=== PATIENT | female | born 2000 | race Caucasian/White ===

== ENCOUNTER 2023-04-23 13:55 | Outpatient (CLI) | payer SELFPAY ==
--- NOTE | 2023-04-23 14:00 | CRLHL7_ITS ---
For Patients: As a result of the Cures Act, medical imaging exams and procedure reports are released immediately into your electronic medical record. You may view this report before your referring provider. If you have questions, please contact your health care provider. INDICATION: Evaluate for size and dates TECHNIQUE: Ultrasound OB pelvis transvaginal. Real time hunter scale imaging of the pelvis was performed. COMPARISON: None FINDINGS: Sonographic imaging demonstrates a single living intrauterine gestation. The embryo demonstrates a regular cardiac rate measuring 165 beats per minute. The embryo`s crown rump length measurement 0.7 cm corresponds to a gestational age of 8 weeks 1 day with a sonographic due date of 12/02/2023. There is a normal appearing yolk sac. There are no gross abnormalities noted within the embryo at this early state of development. The placenta has not yet developed. The gestational sac has a normal appearance and there is no evidence of a perigestational hemorrhage. The amount of fluid within the sac appears appropriate for gestational age. The cervix is closed. The myometrium appears normal. The ovaries are of normal size. There are no suspicious fluid collections noted in the cul-de-sac. IMPRESSION: Viable intrauterine . Gestational age calculated at 8 weeks 1 day with a sonographic due date of 12/02/2023. This compares the gestational age by LMP 9 weeks 2 days. No abnormalities seen. Dictated by Antonio Kruger MD @ 04/23/2023 5:50:16 PM (Electronically Signed)
== END 2023-04-23 13:56 | disposition home or self-care (01) ==
PROVIDERS: Visit Provider Advanced Practice Midwife
DX: Z34.91 Encounter for supervision of normal pregnancy, unspecified, first trimester (principal); Z3A.09 9 weeks gestation of pregnancy
CPT/HCPCS: 76817; 80306; 86703; 86803; 86850; 86900; 86901; 87086; 87340

== ENCOUNTER 2023-04-23 14:28 | Outpatient (CLI) | payer SELFPAY | END 2023-04-23 14:29 | disposition home or self-care (01) | PROVIDERS: Visit Provider Advanced Practice Midwife | DX: Z34.91 Encounter for supervision of normal pregnancy, unspecified, first trimester (principal) | CPT/HCPCS: 80306; 86592; 86703; 86762; 86787; 86803; 86850; 86900; 86901; 87086; 87340 ==

== ENCOUNTER 2023-07-22 07:11 | Outpatient (CLI) | payer SELFPAY ==
--- NOTE | 2023-07-22 07:15 | CRLHL7_ITS ---
For Patients: As a result of the Century Cures Act, medical imaging exams and procedure reports are released immediately into your electronic medical record. You may view this report before your referring provider. If you have questions, please contact your health care provider. INDICATION: Evaluate anatomy. COMPARISON: none TECHNIQUE: Real time hunter scale imaging of the fetus was performed as well as color Doppler analysis of the umbilical vessels. FINDINGS: Sonographic imaging demonstrates a single living intrauterine gestation. Fetus demonstrates a regular cardiac rate of 152 beats per minute. Fetus has a variable position. The placenta lies anteriorly without evidence of placenta previa. The placental edge is located 4.8 cm from the internal cervical os. Amniotic fluid volume appears normal. Single deepest vertical pocket: 5.2 cm. The cervix is closed and measures 3.1 cm in length. The composite ultrasound gestational age is calculated at 21 weeks 3 days with an estimated sonographic due date of 11/29/2023. The estimated weight is 412 grams which lies at the 60th %. The following biometric measurements were obtained: Biparietal diameter: 5.2 cm/21 weeks 5 days 76th% Head circumference: 18.8 cm/21 weeks 1 day 44th% Abdominal circumference: 16.6 cm/21 weeks 5 days 65th% Femur length: 3.4 cm/20 weeks 6 days 34th% The HC/AC ratio measures: 1.13 range (1.06-1.24) On anatomic survey, there is a normal appearance of the cerebral ventricles, cavum septi pellucidi, cisterna magna and cerebellum. The nose, and lips appear normal. Incomplete visualization of the profile due to position. The cervical, thoracic and lumbar spine are well visualized and appear normal. There is a normal four-chamber heart view and the left and right ventricular outflow tracts appear normal. The diaphragm and stomach appear normal. The kidneys and bladder also appear normal. There is a normal three-vessel cord and cord insertion site. The four extremities appear normal. IMPRESSION: Concordance of clinical and sonographic dating. Incomplete visualization of profile due to position. Remainder of the anatomic survey is normal. Short-term follow-up recommended. Dictated by Antonio Colby MD @ 07/24/2023 6:13:17 AM (Electronically Signed)
== END 2023-07-22 07:12 | disposition home or self-care (01) ==
PROVIDERS: Visit Provider Advanced Practice Midwife
DX: Z34.92 Encounter for supervision of normal pregnancy, unspecified, second trimester (principal); Z3A.21 21 weeks gestation of pregnancy
CPT/HCPCS: 76805

== ENCOUNTER 2023-08-21 08:11 | Outpatient (CLI) | payer BC, SELFPAY ==
--- NOTE | 2023-08-21 08:15 | CRLHL7_ITS ---
For Patients: As a result of the Century Cures Act, medical imaging exams and procedure reports are released immediately into your electronic medical record. You may view this report before your referring provider. If you have questions, please contact your health care provider. INDICATION: FOLLOW UP MISSED ANATOMY COMPARISON: 07/22/2023 TECHNIQUE: Real time hunter scale imaging of the fetus was performed. FINDINGS: Sonographic imaging demonstrates a single living intrauterine gestation. Fetus demonstrates a regular cardiac rate of 142 beats per minute. Fetus has a vertex position. The placenta lies anteriorly. Amniotic fluid volume appears normal. Single deepest vertical pocket: 5.2 cm. Normal profile. IMPRESSION: Normal profile. Dictated by Antonio Colby MD @ 08/21/2023 11:55:01 AM (Electronically Signed)
== END 2023-08-21 08:12 | disposition home or self-care (01) ==
LOC: US 08:11
PROVIDERS: Visit Provider Advanced Practice Midwife
DX: Z36.2 Encounter for other antenatal screening follow-up (principal)
CPT/HCPCS: 76816

== ENCOUNTER 2023-09-18 09:10 | Outpatient (CLI) | payer BC, SELFPAY | END 2023-09-18 09:11 | disposition home or self-care (01) | LOC: NFLDREF 09-20 10:22 | PROVIDERS: Visit Provider Advanced Practice Midwife | DX: Z34.91 Encounter for supervision of normal pregnancy, unspecified, first trimester (principal) | CPT/HCPCS: 86592 ==

== ENCOUNTER 2023-11-06 10:31 | Outpatient (CLI) | payer BC, OTHER, SELFPAY ==
[2023-11-07 14:09] LABS: Strep B DNA Probe Negative (Negative)
[2023-11-07 14:20] LABS: Strep B Susceptibility Needed? No
== END 2023-11-06 10:32 | disposition home or self-care (01) ==
LOC: NFLDREF 10:31
PROVIDERS: Visit Provider Advanced Practice Midwife
DX: Z34.93 Encounter for supervision of normal pregnancy, unspecified, third trimester (principal); Z3A.36 36 weeks gestation of pregnancy
CPT/HCPCS: 87081; 87653

== ENCOUNTER 2023-11-18 22:27 | Inpatient (IN) | payer BC, SELFPAY ==
[2023-11-18 22:07] LABS: Amnisure Rom* POSITIVE
[2023-11-18 22:49] VITALS: BP 135/71; PULSE 73
[2023-11-18 22:50] VITALS: PULSE 76; O2SAT 98
[2023-11-18 23:22] VITALS: BMI 27.7
[2023-11-18 23:55] VITALS: TEMP 36.7
[2023-11-19] VITALS (25 sets, daily range): BP systolic 112–144; BP diastolic 58–81; PULSE 60–92; RESP 16–18; TEMP 36.5–37.7; O2SAT 97
--- NOTE | 2023-11-19 00:39 | W.PM.LDBA ---
Subjective History of Present Illness Date Seen: 11/19/23 Narrative: Patient is being admitted to Labor and Delivery for SROM. She is a 23 year old at 38.1 weeks gestation. Her full history and physical was dictated by Elliott Hernandez CNM on 11/12/23. Please see this for details. She had SROM with clear fluid at 1645. She has had contractions since shortly after this that had slowly increased in intensity and are about every 5 minutes. She labored at home for a while before coming in to be evaluated. On admit she was found to be 1cm/80%/+1 per RN exam. She continues to leak clear fluid. We had a discussion about augmentation of labor. She would like to avoid that is possible but is open to discussing it around t12 hours after rupture if labor isn't progressing on its own. She is supported by her and is coping well with contractions. She is planning to do the labor warm up circuit and is considering pumping as well to help stimulate labor. Denies questions. 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 Varicella NON immune, needs vaccine PP Needs PP pap Covid: declines Flu: declines Tdap: RSV: Declines OB - Problem Based A/P Additional Plan (1) Pain during labor: Status: Acute (2) SROM (spontaneous rupture of membranes): Status: Acute Plan ASSESSMENT:? at 38.1 weeks gestation? GBS negative? Uncomplicated ? ?? PLAN:? 1. Desires water . Consent signed. Hep C negative.?Waterbirth room is currently occupied. She is aware that she can labor in the tub. Will attempt to move her to the water room if timing allows. 2. Candidate for analgesia of choice. Planning unmedicated .? 3. Anticipate ? 4. Expectant management at this time.? 5. Intermittent auscultation after reactive tracing.? Delivery/Labor/Induction Plan Plan: expectant management OB Result Labs Blood Type: O (+) positive GBS Status: negative OB Exam Physical Exam Vital signs: Pulse BP Pulse Ox 73 135/71 98 11/18/23 22:49 11/18/23 22:49 11/18/23 22:50 Narrative: Psychiatric:? Alert and oriented x3? HEENT:? Normocephalic, atraumatic? Neck:? Supple without adenopathy or thyromegaly? Lungs:? Clear to auscultation bilaterally? Heart:? Regular rate and rhythm, no murmur, rub or gallop? Abdomen:? Soft, nontender, and gravid? Extremities:? No edema or erythema? Detailed Labor and Delivery Exam Patient Gravid: No Dilation (cm): 1 (per RN exam) Effacement (%): 80 Contraction Frequency: 5min Fetus (Single) Station: +1 Amniotic Membrane Status: SROM Amniotic Membrane Fluid Description: Clear Heart Rate Baseline: 130 Monitor Accelerations: Present Monitor Decelerations: None Sugarcane Planter Variability: Moderate (6-25)
--- NOTE | 2023-11-19 06:44 | PM.OBPNL ---
Subjective Date Seen: 11/19/23 Narrative: Allegra has continued to labor. She has been feeling more intense contractions and they are now every 2-4 minutes. She is coping well and has done multiple position changes and has been in the tub. With her last exam by the RN it was felt that there was a forebag which she asked to be ruptured. She was checked and found to be 3cm/100%/+1. I did attempt to rupture the forebag but there was very little fluid noted so it is uncertain if this occurred. Objective Vital Signs: Last Vital Signs Temp 97.7 F 11/19/23 05:00 Pulse 67 11/19/23 05:13 Resp 16 11/19/23 02:09 BP 126/66 11/19/23 05:13 Pulse Ox 98 11/18/23 22:50 Pelvic Exam Dilation (cm): 3 Effacement (%): 100 Station: +1 Contractions Monitor mode: Palpation Contraction Frequency: 2-4 Contraction pattern: Regular Contraction intensity: Strong/Firm Assessment Assessment: early labor Station: +1 Amniotic Membrane Status: SROM Heart Rate Baseline: 130 (per doppler) Plan Plan: Continue with expectant management. Anticipate . Candidate for analgesia of choice. Desires unmedicated.
--- NOTE | 2023-11-19 09:30 | PM.OBPNL ---
Subjective Date Seen: 11/19/23 Narrative: Maria Dolores Dinh is a at 38 1/7 weeks gestation who presented with ROM of clear fluid at about 1645 yesterday. She has spontaneously labored on her own and continued to leak clear fluid. She is desiring to labor in the large labor tub. Plan cervical exam prior to entrance tub. She is coping well with labor pain. Supported by her partner and her mother. She desires to use nitrous in the tub. Objective Exam: Objective: Constitutional: Alert and oriented x3, moderate distress, coping well Vital signs stable, see nurse documentation Abdomen: gravid, contractions palpate moderate/strong with contractions and soft between Cervix: 5 cm/100%/+1 station/vertex Vital Signs: Last Vital Signs Temp 98.8 F 11/19/23 07:35 Pulse 65 11/19/23 06:45 Resp 16 11/19/23 02:09 BP 125/75 11/19/23 06:45 Pulse Ox 98 11/18/23 22:50 Pelvic Exam Dilation (cm): 5 Effacement (%): 100 Station: +1 Contractions Monitor mode: Palpation Contraction pattern: Regular Contraction intensity: Strong/Firm Assessment Assessment: early labor Station: +1 Amniotic Membrane Status: SROM Heart Rate Baseline: 130 (per doppler) Tracing Comments: Reassuring via intermittent auscultation. Plan Plan: ASSESSMENT:? 23 yo at 38 1/7 weeks gestation? complicated by:?varicella non-immune Labor type: spontaneous, Active labor? Reassuring by intermittent auscultation, reactive NST early this morning Labor complicated by: none? GBS negative? ? PLAN:? 1. Routine intrapartum cares as ordered. Continue with expectant management? 2. Monitoring per policy, intermittent? 3. Planning unmedicated . Desires water . Consent signed. Hep C negative. Candidate for analgesia of choice if desired.?? 4. Patient encouraged to reposition and ambulate to promote physiologic labor and .? 5. Anticipate ?
[2023-11-19] MEDS: OXYTOCIN 10 UNIT/ML INJ IM (14:08)
[2023-11-19] MEDS: lidocaine HCL 2 % JELLY (TOP) STERILE 6 ML UR (14:32)
--- NOTE | 2023-11-19 14:57 | W.PM.OBVAGDE ---
OB Procedure Vag Delivery Mother Details Mother Details: The patient is a 23 year-old, 1, now Para 1, admitted on 11/18/23 at 38.1 weeks gestation. : 1 Para: 1 Weeks Gestation: 38.1 Admission Date: 11/18/23 Additional Details Amniotic Membrane Status: SROM Amniotic Membrane Rupture Date: 11/18/23 Amniotic Membrane Rupture Time: 16:45 Amniotic Membrane Fluid Description: Clear Analgesia/Anesthesia Type: None Waterbirth: Yes Pitcoin: Yes ([facility] only) Intrapartal Events: None Labor Onset: 06:30 Complete: 12:14 Pushin:14 Heart: heart tones during second stage were reassuring with intermittent auscultation throughout. Delivery Details Delivery Date: 11/19/23 Delivery Time: 14:04 Route of delivery: Infant Gender: Male Infant Viability: Alive; Heart Rate Present Position at Delivery: OA Delivery Details: Patient was admitted for ROM with spontaneous labor and progressed normally. SROM noted at 1645 on 11/18 with clear fluid. Patient labored in multiple positions including the regular tub. She was transferred to the Waterbirth suite and labored in the waterbirth tub. When she initially felt an urge to push, she was found to be 8 cm. She then was guided to breath though contractions and coped well with the tub and nitrous. Patient desired to be rechecked about 1 hour later and was found to have an anterior lip. Decision was made to reduce and she was assumed complete with next few contractions while pushing at 1214. She pushed well in multiple positions with continual bedside support by CNM, RN, , and mother. of a viable male at 1404 in semifowlers in the tub. Vertex delivered OA. Nuchal identified and reduced before placing on mothers abdomen, cord then reduced from left hand. No shoulder. Body delivered easily and without incident. passed to mothers abdomen with a vigorous cry. Cord was clamped and cut at > 5 minutes. APGARS were 8 at one minute and 9 at five minutes respectively. Mouth was bulb suctioned. Intact placenta with a 3 vessel cord delivered spontaneously at 1417. Fundus firm. 2nd degree identified and repaired in typical fashion. Patient had difficulty with pain during repair, used nitrous with topical and local lidocaine but felt minimal relief with Lidocaine. QBL 50 cc + 200 EBL in tub. Mother and baby stable; mother plans to breastfeed. weight 7lb 9oz. 1 Minute Interval Total Score: 8 5 Minute Interval Total Score: 9 Additional Details Shoulder Dystocia: No Placenta Delivery Time: 14:17 Placental Delivery Description: Spontaneous Delivery repair: Vicryl Procedure Done: Global Blood Loss: 250 Laceration: Perineal - 2nd Degree Blood Loss Measurement Type: QBL Bakri Used: No Sponge/Need Count Correct: Yes Cord Vessel Description: 3 Vessels, Nuchal Cord, Loose, Reduced and Around Extremity Event Summary Status: Mother and infant were stable after delivery. Disposition: floor
[2023-11-19 15:16] LABS: Hematocrit 32.8 % (33.0-51.0); Hemoglobin* 11.3 gm/dL (12.0-16.0); Mean Corpuscular HGB Conc 35 gm/dL (32-36); Mean Corpuscular Hemoglobin 30 pg (26-34); Mean Corpuscular Volume 86 fL (80-100); Platelet Count* 273 K/uL (140-440); Red Blood Count 3.82 m/uL (4.00-5.20)
[2023-11-19 15:26] LABS: Slide Review Reflex No
[2023-11-19 15:30] LABS: Alanine Aminotransferase* 19 U/L (4-35); Aspartate Amino Transferase* 37 U/L (12-35); Blood Urea Nitrogen* 6 mg/dL (5-24); Creatinine* 0.5 mg/dL (0.5-1.5); Est. Creatinine Clearance* 173.51; Estimated Glomerular Filt Rate 133 ml/min
[2023-11-19] MEDS: BENZOCAINE/MENTHOL SPRAY 85 GM AEROSOL 1 APPLIC TOPICAL (16:37)
[2023-11-19] MEDS: LIDOCAINE 1 % PF 30 ML INJECTION (18:28)
[2023-11-20 00:30] VITALS: BP 118/63; PULSE 74; RESP 16; TEMP 36.7; O2SAT 96
[2023-11-20 05:09] VITALS: BP 117/64; PULSE 67; RESP 16; TEMP 36.8; O2SAT 97
[2023-11-20 06:35] LABS: Basophils Percent Auto 0.2 % (0.0-3.0); Eosinophils Percent Auto 0.4 % (0.0-7.0); Hematocrit 29.3 % (33.0-51.0); Hemoglobin* 9.9 gm/dL (12.0-16.0); Immature Granulocytes Pct Auto 1.3 %; Lymphocytes Percent Auto 17.3 % (20-44); Mean Corpuscular HGB Conc 34 gm/dL (32-36); Mean Corpuscular Hemoglobin 29 pg (26-34); Mean Corpuscular Volume 87 fL (80-100); Monocytes Percent Auto 6.8 % (0.0-11.0); Platelet Count* 229 K/uL (140-440); RDW Coefficient of Variation % 12.6 % (11.5-15.5); Red Blood Count 3.38 m/uL (4.00-5.20); White Blood Count* 18.36 K/uL (4.50-11.00)
[2023-11-20 06:40] LABS: Slide Review Reflex No
[2023-11-20 08:38] VITALS: BP 126/76; PULSE 66; RESP 16; TEMP 36.9; O2SAT 96
--- NOTE | 2023-11-20 10:05 | P.DS_ITS ---
DS: Providers Provider Date Seen: 11/20/23 Date of admission: 11/18/23 22:27 Primary care physician: Not a Local Provider Admitting Clinician: Olivia Houston CNM Attending Physician on discharge: Conner Kumar CNM Date of Discharge: 11/20/23 DS: Diagnosis Discharge Diagnosis (1) care and examination immediately after delivery: Status: Acute (2) Lactating mother: Status: Acute (3) Gestational hypertension: Status: Acute Problem details: Per MD ERNESTO, consider repeating labs only if BP's start to rise. Exam Narrative: Exam Narrative: GENERAL APPEARANCE:? normal affect, alert, no distress MOOD:? appropriate CHEST:? clear to auscultation HEART:? regular rate and rhythm ABDOMEN:? soft, non-tender the uterine fundus is 1 cm below Umbilicus, Midline and is appropriate for the stage of recovery. PERINEUM:? mild edema of the perineum, there is a Perineal Laceration,? 2nd degree that is healing well. EXTREMITIES:? normal and no edema Const: Vital Signs, click to edit/add: Vital Signs - 24 hr 11/19/23 10:30 11/19/23 10:30 11/19/23 11:42 Temperature 99.1 F Pulse Rate 68 Pulse Rate [Left P ulse Oximeter] Respiratory Rate 16 Blood Pressure 127/70 144/75 H Blood Pressure [Le ft Arm] Pulse Oximetry Oxygen Delivery [facility] 11/19/23 11:42 11/19/23 12:53 11/19/23 12:53 Temperature 98.3 F 98.2 F Pulse Rate 75 92 Pulse Rate [Left P ulse Oximeter] Respiratory Rate 16 16 Blood Pressure 141/81 H Blood Pressure [Le ft Arm] Pulse Oximetry [facility] 14:18 11/19/23 14:33 11/19/23 14:48 Temperature Pulse Rate 85 86 74 Pulse Rate [Left P ulse Oximeter] Respiratory Rate Blood Pressure 141/74 H 132/63 132/60 Blood Pressure [Le ft Arm] Pulse Oximetry [facility] 15:02 11/19/23 15:03 11/19/23 15:18 Temperature 99.9 F H Pulse Rate 76 65 Pulse Rate [Left P ulse Oximeter] Respiratory Rate 16 Blood Pressure 120/58 L 118/58 L Blood Pressure [Le ft Arm] Pulse Oximetry Oxygen Delivery Me thod 11/19/23 15:33 11/19/23 15:33 11/19/23 15:48 Temperature Pulse Rate 62 60 Pulse Rate [Left P ulse Oximeter] Respiratory Rate 16 Blood Pressure 132/68 125/69 Blood Pressure [Le ft Arm] Pulse Oximetry Oxygen Delivery Me thod 11/19/23 15:48 11/19/23 16:03 11/19/23 16:03 Temperature Pulse Rate 69 Pulse Rate [Left P ulse Oximeter] Respiratory Rate 16 16 Blood Pressure 120/67 Blood Pressure [Le ft Arm] Pulse Oximetry Oxygen Delivery Me thod 11/19/23 16:15 11/19/23 16:15 11/19/23 20:12 Temperature 98.9 F 98.0 F Pulse Rate 78 Pulse Rate [Left P ulse Oximeter] 84 Respiratory Rate 16 16 Blood Pressure 127/75 Blood Pressure [Le ft Arm] 112/68 Pulse Oximetry 97 Oxygen Delivery Me thod Room Air 11/20/23 00:30 11/20/23 05:09 11/20/23 08:38 Temperature 98.1 F 98.2 F 98.5 F Pulse Rate Pulse Rate [Left P ulse Oximeter] 74 67 66 Respiratory Rate 16 16 16 Blood Pressure Blood Pressure [Le ft Arm] 118/63 117/64 126/76 Pulse Oximetry 96 97 96 Oxygen Delivery Me thod Room Air Room Air Room Air Documenting provider has reviewed patient's vital signs: yes OB - DS: Summary Hospital Course Hospital Course: Maria Dolores is a 23 y.o. who was admitted to L & D for SROM. ?She had an uncomplicated NVD.?The patient feels well. ?The pain is well controlled with current medications. ?She has no new complaints. ?She is breast feeding and reports things are going well.? the patient has done well.? Vitals have been stable.? She has remained afebrile.? Has a good appetite, is tolerating a general diet. ?She is voiding without difficulty.? She is passing g as and has not had a bowel movement.? She is ambulating and denies any dizziness.? Has Small amount of rubra lochia. ?She is undecided on her plan for prevention. Peripartum Data delivery method: Vaginal Laceration description: Perineal - 2nd Degree complications: none Infant Gender: Male Infant Discharge Plan: Home Status at Discharge Functional status at discharge: independent ambulation Overall status at discharge: patient is progressing back to baseline Time Spent with Patient Time attestation: Total time spent providing and/or coordinating discharge services: Time spent: Less than 30 minutes Discharge Plan Discharge Disposition: Home, Self-Care Date of Admission: 11/18/23 22:27 Attending Provider on Discharge: Conner Kumar Primary Care Provider: Provider,Not a Local Condition: Stable Anticipated Discharge Date/Time: 11/20/23 12:00 Discharge Medications: New acetaminophen 500 mg Tablet 1,000 mg PO Q6H PRNQty: 0 0RF docusate sodium 100 mg Capsule 100 mg PO DAILY Qty: 90 2RF ibuprofen 600 mg Tablet 600 mg PO Q6H PRNQty: 60 0RF ferrous sulfate 325 mg (65 mg iron) tablet,delayed release (DR/EC) 325 mg PO Q OTHER DAY Qty: 30 2RF Rx Instructions: Take every other day with a glass of OJ or vitamin C. Avoid dairy products for 2 hours after taking. Continued Classic 28 mg iron- 800 mcg tablet PO QDAY pantoprazole [Protonix] 20 mg tablet,delayed release (DR/EC) 20 mg PO QDAY Qty: 60 0RF Discontinued ondansetron HCl 4 mg tablet 4 mg PO TID PRN (Reason: nausea and vomiting) Qty: 30 3RF Discharge Orders: Discharge Order (Routine); Ordered 11/20/23 Ordered By: Conner Kumar Patient Education: OB Over the Counter Medication Information, OB Vaginal/Bottle Feeding Additional Instructions: Discharge instructions were reviewed with the patient including signs and symptoms of infection and home going medications Nothing vaginally for 6 weeks: no tampons or intercourse Off Work or School for 6 weeks Follow [facility] for a BP check?in 3 days Call with BP greater than or equal to 160/110 2-week visit: discuss feeding concerns, review control options and screen for anxiety/depression. 6-week visit for an annual exam. consultation services are available to all mothers and babies for the first year after delivery.? To make an appointment, please call [phone]. Activity Level: Activity as Tolerated Discharge Diet: Regular Follow Up Appointments: Provider,Not a Local [Primary Care Provider] - [facility] [Provider Group] Forms: [employer] Info Instructions
[2023-11-20 12:04] VITALS: BP 117/73; PULSE 62; RESP 16; TEMP 36.9; O2SAT 96
== END 2023-11-20 16:45 | disposition home or self-care (01) | DRG 560 ==
LOC: OB OUT 11-19 11:13
PROVIDERS: Advanced Practice Midwife; Admitting Provider Advanced Practice Midwife; Visit Provider Advanced Practice Midwife
DX: O13.4 Gestational [pregnancy-induced] hypertension without significant proteinuria, complicating childbirth (principal); O70.1 Second degree perineal laceration during delivery; Z3A.38 38 weeks gestation of pregnancy; Z37.0 Single live birth
CPT/HCPCS: 36415; 82565; 84112; 84450; 84460; 84520; 85025; 85027; 86592; G0463; J2001; J2590

== ENCOUNTER 2023-11-22 09:40 | Outpatient (CLI) | payer BC, OTHER, SELFPAY ==
[2023-11-22] VITALS (10 sets, daily range): BP systolic 119–138; BP diastolic 66–82; PULSE 65–90; TEMP 36.7
[2023-11-22 11:03] LABS: Hematocrit 30.1 % (33.0-51.0); Mean Corpuscular HGB Conc 33 gm/dL (32-36); Mean Corpuscular Hemoglobin 29 pg (26-34); Mean Corpuscular Volume 88 fL (80-100); Platelet Count* 233 K/uL (140-440); Red Blood Count 3.41 m/uL (4.00-5.20); White Blood Count* 9.51 K/uL (4.50-11.00)
[2023-11-22 11:08] LABS: Alanine Aminotransferase* 33 U/L (4-35); Aspartate Amino Transferase* 55 U/L (12-35); Blood Urea Nitrogen* 5 mg/dL (5-24); Creatinine* 0.4 mg/dL (0.5-1.5); Estimated Glomerular Filt Rate 141 ml/min; Slide Review Reflex No
--- NOTE | 2023-11-22 11:35 | P.OBPN_ITS ---
OB - PN:Subj Subjective Date Seen: 11/22/23 Patient comments OB post-: no complaints, pain well controlled, tolerating diet and flatus present Bradley status: and doing well Bradley feeding status: exclusively Narrative: Allegra is a s/p day 3 . She presents to the unit today for a bili check for her baby. Additionally, at home her blood pressures were 150-16 0/100's. She denies headache, RUQ pain, or visual changes. She does have an increase in swelling in her feet. Here her blood pressures have been 110-130's/60-80's. Labs were mostly normal but her AST has elevated from 37 at discharge to 55 today. Consulted with OB and ok for her to discharge with close follow up. She has a previously scheduled appointment on Thursday for a blood pressure check. Will switch that from an nurse visit to an appointment with a provider with labs. She will continue to check her blood pressures at home twice a day and symptoms were reviewed. 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 OB - PN: Obj Exam Physical Exam: Vital signs: Pulse BP 85 138/80 11/22/23 11:26 11/22/23 11:26 Constitutional: Constitutional: no acute distress Routine Neck Exam: Neck: Present full ROM Routine Respiratory Exam: Comments: Breathing easily. Routine Abdominal Exam: Fundus: Present firm Routine Exam: Comments: declines Detailed Lower Extremity Exam: Foot/Toes: bilateral: swelling (1+) Routine Neurological Exam: Neurological: Present alert Routine Psychiatric Exam: Psychiatric: Present normal affect OB - PN: Obj Data Labs Labs: Laboratory Results - last 24 hr 11/22/23 10:45 WBC 9.51 RBC 3.41 L Hgb 10.0 L Hct 30.1 L MCV 88 MCH 29 MCHC 33 Plt Count 233 BUN 5 Creatinine 0.4 L Estimated GFR 141 AST 55 H ALT 33 OB - PN: A/P Delivery Assessment and Plan (1) Lactating mother: Status: Acute (2) care following vaginal delivery: Status: Acute (3) Blood pressure check: Status: Acute Plan Blood pressure checks twice daily at home. Return for blood pressure check and labs Thursday (11/24/23) and sooner if needed. Plan day: 3
== END 2023-11-22 12:31 | disposition home or self-care (01) ==
LOC: OB OUT 09:48 → OB 09:49
PROVIDERS: Visit Provider Advanced Practice Midwife
DX: Z39.2 Encounter for routine postpartum follow-up (principal); Z39.1 Encounter for care and examination of lactating mother; Z01.30 Encounter for examination of blood pressure without abnormal findings
CPT/HCPCS: 36415; 82565; 84450; 84460; 84520; 85027; G0463

== ENCOUNTER 2023-11-24 11:00 | Outpatient (CLI) | payer BC, OTHER, SELFPAY | END 2023-11-24 11:01 | disposition home or self-care (01) | LOC: NFLDREF 12-10 06:46 | PROVIDERS: Visit Provider Advanced Practice Midwife | DX: Z39.2 Encounter for routine postpartum follow-up (principal) | CPT/HCPCS: 82565; 84450; 84460 ==

== ENCOUNTER 2023-11-25 10:17 | Outpatient (CLI) | payer BC, OTHER, SELFPAY | END 2023-11-25 10:18 | disposition home or self-care (01) | LOC: NFLDREF 12-04 14:43 | PROVIDERS: Visit Provider Advanced Practice Midwife | DX: Z39.2 Encounter for routine postpartum follow-up (principal) | CPT/HCPCS: 82565; 84450; 84460 ==